=== PATIENT | male | born 2000 | race Caucasian/White ===

== ENCOUNTER 2021-12-30 09:17 | Emergency (ER) | payer MEDICAID ==
[~2021-12-30] VITALS: Ht 167.6 cm; Wt 58.0 kg
[2021-12-30 09:21] VITALS: BP 124/49
== END 2021-12-30 10:35 | disposition home or self-care (01) ==
LOC: ER 09:17
DX: M79.641 Pain in right hand (principal); Z88.8 Allergy status to other drugs, medicaments and biological substances
CPT/HCPCS: 29125; 73130; 99283; L3908